=== PATIENT | male | born 1980 | race African-American/Black ===

== ENCOUNTER 2023-02-19 18:26 | Emergency (ER) | payer BC ==
[~2023-02-19] VITALS: Ht 182.9 cm; Wt 81.0 kg
[2023-02-19 18:38] VITALS: TEMP 98.3; O2SAT 100
[2023-02-19] MEDS ORDERED: ACETAMINOPHEN WITH CODEINE 300/30MG TABLET PO STA (21:24)
[2023-02-19] MEDS ORDERED: AMOXICILLIN/POTASSIUM CLAVULANATE 875/125MG TAB PO ONE (22:30)
[2023-02-19] MEDS ORDERED: MORPHINE SULFATE 10 MG/ML CPJ IM ONE (22:45)
[2023-02-19] MEDS ORDERED: IBUP-2029 MT (23:04)
[2023-02-19] MEDS ORDERED: T3 PO (23:04)
[2023-02-19] MEDS ORDERED: AMOX1TAB16 MT (23:04)
[2023-02-19] MEDS ORDERED: OXYM30SP26 BOTHNSTRLS (23:05)
[2023-02-19] MEDS ORDERED: TETANUS, DIPHTHERIA, PERTUSSIS VAC/PF 0.5ML (>10YR OLD) IM ONE (23:15)
[2023-02-20 00:06] VITALS: BP 122/78; PULSE 84; RESP 16
== END 2023-02-20 00:08 | disposition home or self-care (01) ==
LOC: ER 18:26
DX: S02.85XA Fracture of orbit, unspecified, initial encounter for closed fracture (principal); Y08.89XA Assault by other specified means, initial encounter; Y93.89 Activity, other specified; Y92.89 Other specified places as the place of occurrence of the external cause; Y99.8 Other external cause status
CPT/HCPCS: 99285; 70450; 70486; 90715; 90471; 96372; J2270

== ENCOUNTER 2024-12-23 11:43 | Emergency (ER) | payer BC, MEDICAID ==
[~2024-12-23] VITALS: Ht 182.9 cm; Wt 65.0 kg
[~2024-12-23 11:43] MED LIST: AMOX1TAB16 MT; IBUP-1455 MT; OXYM30SP26 BOTHNSTRLS; T3 PO
[2024-12-23 11:54] VITALS: O2SAT 100
[2024-12-23] MEDS: CYCLOBENZAPRINE 10MG TABLET PO ONE (14:24)
[2024-12-23] MEDS: KETOROLAC 30MG/ML VIAL IM ONE (14:24)
[2024-12-23] MEDS ORDERED: CYCL5TAB3 MT (16:39)
[2024-12-23] MEDS ORDERED: IBUP-2028 MT (16:39)
[2024-12-23 16:47] VITALS: BP 130/95; PULSE 83; RESP 18; TEMP 36.7; O2SAT 100
== END 2024-12-23 16:48 | disposition home or self-care (01) ==
LOC: ER 11:43
DX: S16.1XXA Strain of muscle, fascia and tendon at neck level, initial encounter (principal); S39.012A Strain of muscle, fascia and tendon of lower back, initial encounter; M48.04 Spinal stenosis, thoracic region; X58.XXXA Exposure to other specified factors, initial encounter; Y93.89 Activity, other specified; Y92.89 Other specified places as the place of occurrence of the external cause; Y99.8 Other external cause status
CPT/HCPCS: 99285; 72131; 96372; J1885